=== PATIENT | male | born 1995 | race Caucasian/White ===

== ENCOUNTER 2017-09-14 23:52 | Emergency (ER) | payer OTHER ==
[~2017-09-14] VITALS: Ht 177.8 cm; Wt 75.0 kg
[2017-09-14] MEDS ORDERED: NO HOME MEDS (23:58)
[2017-09-15 00:58] VITALS: BP 110/63
== END 2017-09-15 01:50 ==
LOC: ER 23:53
DX: Z02.89 Encounter for other administrative examinations (principal)
CPT/HCPCS: 99283